=== PATIENT | female | born 1955 | race Caucasian/White ===

== ENCOUNTER 2020-02-06 09:24 | Inpatient (IN) | payer BC ==
[~2020-02-06] VITALS: Ht 165.1 cm; Wt 49.9 kg
[2020-02-06] MEDS ORDERED: HYDROCODONE/APAP 5MG-325MG TAB PO ONE (09:45)
[2020-02-06] MEDS ORDERED: FENTANYL CITRATE/PF 100MCG/2 ML INJ IJ ONE (09:45)
[2020-02-06] MEDS ORDERED: ONDANSETRON HCL INJ 2MG/ML 2ML 2 MG/ML VIAL IV PRN (11:45)
[2020-02-06] MEDS ORDERED: MORPHINE SULFATE INJ 4 MG/ML INJ 1ML IV PRN (12:00)
[2020-02-06 17:00] VITALS: BP 120/63
[2020-02-06 17:05] VITALS: BP 120/63
[2020-02-06] MEDS: HYDROMORPHONE 1MG/1ML INJ IV PRN ×2 (17:30→21:30)
[2020-02-06] MEDS: NICOTINE 14 MG/EA PATCH TOP SCH (17:30)
[2020-02-06] MEDS: HYDROCODONE/APAP 5MG-325MG TAB PO PRN (19:13)
[2020-02-06 20:00] VITALS: BP 104/62
[2020-02-07] VITALS (7 sets, daily range): BP systolic 102–146; BP diastolic 60–83
[2020-02-07] MEDS: HYDROMORPHONE 1MG/1ML INJ IV PRN ×3 (00:40→19:00)
[2020-02-07] MEDS: HYDROCODONE/APAP 5MG-325MG TAB PO PRN ×4 (03:35→17:04)
[2020-02-07 04:54] LABS: CALCIUM IONIZED 1.2 mmol/L (1.09-1.30)
[2020-02-07 04:58] LABS: BASOPHILS # (AUTO) 0.1 (0.0-0.1); BASOPHILS % 0.6 % (0.0-1.0); EOSINOPHILS % 0.5 % (0.0-6.0); HEMATOCRIT 40.2 % (34.2-44.1); HEMOGLOBIN 13.3 g/dL (12.0-16.0); LYMPHOCYTES # (AUTO) 1.8 (1.0-3.2); LYMPHOCYTES % 22.4 % (18.0-39.1); MEAN CORPUSCULAR HEMOGLOBIN 29.8 pg (28-32); MEAN CORPUSCULAR HGB CONC 33.1 g/dL (31-35); MEAN CORPUSCULAR VOLUME 90.1 fL (81-99); MONOCYTES # (AUTO) 0.7 (0.2-0.8); NEUTROPHILS # (AUTO) 5.5 (2.1-6.9); NEUTROPHILS % 68.3 % (38.7-80.0); PLATELET COUNT 166 x10e3/uL (140-360); RED BLOOD COUNT 4.46 x10e6/uL (3.6-5.1); RED CELL DISTRIBUTION WIDTH 13.7 % (11.7-14.4)
[2020-02-07 05:30] LABS: ALANINE AMINOTRANSFERASE 25 IU/L (0-55); ALBUMIN 3.7 g/dL (3.5-5.0); ALBUMIN/GLOBULIN RATIO 1.3 (0.8-2.0); ALKALINE PHOSPHATASE 105 IU/L (40-150); ANION GAP 8.9 mmol/L (8-16); BLOOD UREA NITROGEN 9 mg/dL (7-26); BUN/CREATININE RATIO 13 (6-25); CALCIUM 8.5 mg/dL (8.4-10.2); CARBON DIOXIDE 27 mmol/L (22-29); CHLORIDE 105 mmol/L (98-107); CREATININE, SERUM 0.67 mg/dL (0.57-1.11); EST GLOMERULAR FILTRATION RATE > 60 ML/MIN (60-); GLUCOSE 92 mg/dL (74-118); POTASSIUM 3.9 mmol/L (3.5-5.1); SODIUM 137 mmol/L (136-145)
[2020-02-07] MEDS: NICOTINE 14 MG/EA PATCH TOP SCH (08:16)
[2020-02-07] MEDS ORDERED: OYST-CAL-D 500MG TABLET PO SCH (09:00)
[2020-02-07] MEDS ORDERED: CHOLECALCIFEROL 1,000 UNIT TAB PO SCH (09:00)
[2020-02-07] MEDS ORDERED: ONDANSETRON HCL 4 MG ORAL DISINTEGRATING TAB PO PRN (13:45)
== END 2020-02-07 22:57 | disposition home or self-care (01) | DRG 543 ==
LOC: ER 09:55 → ERHOLD 11:44 → MED/SURG2 16:32 → UNDODISIN 02-07 20:08
PROVIDERS: ADMIT Internal Medicine; ATTEND Internal Medicine
DX: M80.88XA Other osteoporosis with current pathological fracture, vertebra(e), initial encounter for fracture (principal); Z68.1 Body mass index [BMI] 19.9 or less, adult; F17.200 Nicotine dependence, unspecified, uncomplicated; M47.896 Other spondylosis, lumbar region; W19.XXXA Unspecified fall, initial encounter; N20.0 Calculus of kidney; Z20.828 Contact with and (suspected) exposure to other viral communicable diseases; G89.11 Acute pain due to trauma; R63.6 Underweight
CPT/HCPCS: 36415; 72128; 72131; 80053; 83735; 85025; 99251; 99284; J1170; J2270; J2405; J3010; U0002